=== PATIENT | female | born 1965 | race Two or more races ===

== ENCOUNTER → 2017-12-12 | Outpatient (CLI) | payer OTHER ==
[~2017-12-12] MED LIST: ACIDOPHILUS1 EAC1 PO; ALBUTEROL2.5 MG/3 M IH; AMOX1TAB12 PO; AZITHROMYCIN250 MG PO; FLONASE16 G1 NS; IPRAT-ALBUT 0.5-3 ML IH; LEXAPRO5 MG PO; LUNESTA1 MG PO; NASONEX17 GM TOP; PERCOCET 5/3251 TAB PO; PROTONIX40 M1; PULMICORT1 MG/2 ML IH; SYNTHROID100 MCG; SYNTHROID50 MCG PO; TUSSI PRES-B L120 M1 PO; TUSSIONEX PENN115 ML PO; XOPENEX HFA15 GM IH
== END | disposition home or self-care (01) ==
LOC: PPH VACUNA 12:34
DX: Z23 Encounter for immunization (principal)

== ENCOUNTER 2018-01-02 16:11 | Inpatient (IN) | payer OTHER ==
[~2018-01-02] VITALS: Ht 167.6 cm; Wt 79.8 kg
[2018-01-02] MEDS ORDERED: SINGULAIR10 MG (16:33)
[2018-01-02] MEDS ORDERED: TRINTELLIX10 MG (16:33)
[2018-01-02] MEDS ORDERED: BENADRYL25 MG (16:34)
== END 2018-01-06 17:35 | disposition home or self-care (01) | DRG 419 ==
LOC: ER 16:11 → SEC-K 21:14 → MEDJ 21:14
PROVIDERS: Surgery
PROC: BF37ZZZ Magnetic Resonance Imaging (MRI) of Pancreas (ICD-10-PCS; 2018-01-02)
PROC: 0FT44ZZ Resection of Gallbladder, Percutaneous Endoscopic Approach (ICD-10-PCS; principal; 2018-01-05 11:00)
DX: K80.00 Calculus of gallbladder with acute cholecystitis without obstruction (principal)

== ENCOUNTER 2018-07-20 11:32 | Outpatient (CLI) | payer OTHER ==
[~2018-07-20 11:32] MED LIST changes: +BENADRYL25 MG; +SINGULAIR10 MG; +TRINTELLIX10 MG
== END 2018-07-20 11:43 | disposition home or self-care (01) ==
LOC: TOM 11:32
DX: R51 Headache (principal); G50.1 Atypical facial pain

== ENCOUNTER 2019-06-14 14:42 | Outpatient (CLI) | payer OTHER | END 2019-06-14 14:57 | disposition home or self-care (01) | LOC: RAD 14:42 | DX: M54.5 Low back pain (principal); M54.16 Radiculopathy, lumbar region; M54.2 Cervicalgia ==

== ENCOUNTER → 2019-06-24 | Outpatient (CLI) | payer OTHER | END | disposition home or self-care (01) | LOC: NUCLEAR 11:30 | DX: M81.0 Age-related osteoporosis without current pathological fracture (principal); Z13.820 Encounter for screening for osteoporosis ==

== ENCOUNTER → 2019-06-24 | Outpatient (CLI) | payer OTHER | END | disposition home or self-care (01) | LOC: MAMO-SONO 09:21 | DX: Z12.31 Encounter for screening mammogram for malignant neoplasm of breast (principal); Z87.898 Personal history of other specified conditions ==

== ENCOUNTER 2019-07-02 15:06 | Outpatient (CLI) | payer OTHER | END 2019-07-02 15:08 | disposition home or self-care (01) | LOC: RAD 15:06 | DX: M48.061 Spinal stenosis, lumbar region without neurogenic claudication (principal) ==

== ENCOUNTER 2019-07-04 10:15 | Outpatient (CLI) | payer OTHER | END 2019-07-04 10:17 | disposition home or self-care (01) | LOC: NUCLEAR 10:15 | DX: K76.5 Hepatic veno-occlusive disease (principal); I87.2 Venous insufficiency (chronic) (peripheral); I73.9 Peripheral vascular disease, unspecified ==

== ENCOUNTER → 2019-07-05 | Outpatient (CLI) | payer OTHER | END | disposition home or self-care (01) | LOC: NUCLEAR 08:00 | DX: K76.5 Hepatic veno-occlusive disease (principal); I73.9 Peripheral vascular disease, unspecified ==

== ENCOUNTER → 2019-07-12 | Outpatient (CLI) | payer OTHER | END | disposition home or self-care (01) | LOC: RAD 11:10 | DX: M25.551 Pain in right hip (principal); M25.552 Pain in left hip ==

== ENCOUNTER 2020-01-02 14:53 | Outpatient (CLI) | payer OTHER | END 2020-01-02 15:04 | disposition home or self-care (01) | LOC: RAD 14:53 | DX: M16.0 Bilateral primary osteoarthritis of hip (principal); M54.6 Pain in thoracic spine ==

== ENCOUNTER 2020-07-03 12:27 | Emergency (ER) | payer OTHER ==
[~2020-07-03] VITALS: Ht 167.6 cm; Wt 82.6 kg
[2020-07-03] MEDS ORDERED: VITAMIN D31250 MCG PO (12:35)
[2020-07-03] MEDS ORDERED: SYNTHROID100 MCG PO (12:35)
[2020-07-03] MEDS ORDERED: TRINTELLIX20 MG PO (12:35)
[2020-07-03] MEDS ORDERED: MELATONIN10 MG PO (12:37)
== END 2020-07-03 17:04 | disposition home or self-care (01) ==
LOC: ER 12:27
DX: B34.9 Viral infection, unspecified (principal); Z20.828 Contact with and (suspected) exposure to other viral communicable diseases

== ENCOUNTER 2020-07-23 16:22 | Emergency (ER) | payer OTHER ==
[~2020-07-23] VITALS: Ht 167.6 cm; Wt 82.6 kg
[~2020-07-23 16:22] MED LIST changes: +MELATONIN10 MG PO; +SYNTHROID100 MCG PO; +TRINTELLIX20 MG PO; +VITAMIN D31250 MCG PO
== END 2020-07-23 22:33 | disposition home or self-care (01) ==
LOC: ER 16:22
DX: U07.1 COVID-19 (principal); J12.89 Other viral pneumonia

== ENCOUNTER 2020-08-06 13:18 | Emergency (ER) | payer OTHER ==
[~2020-08-06] VITALS: Ht 167.6 cm; Wt 80.7 kg
== END 2020-08-06 21:17 | disposition home or self-care (01) ==
LOC: ER 13:18
DX: U07.1 COVID-19 (principal)

== ENCOUNTER 2022-10-03 09:39 | Outpatient (CLI) | payer OTHER | END 2022-10-03 09:54 | disposition home or self-care (01) | LOC: MAMO-SONO 09:39 | DX: N64.4 Mastodynia (principal) ==

== ENCOUNTER → 2022-10-05 | Outpatient (CLI) | payer OTHER | END | disposition home or self-care (01) | LOC: RAD 14:53 | PROVIDERS: ATTEND Internal Medicine Pulmonary Disease | DX: R06.02 Shortness of breath (principal); Z86.16 Personal history of COVID-19 ==

== ENCOUNTER 2023-02-17 12:13 | Outpatient (CLI) | payer OTHER | END 2023-02-17 12:26 | disposition home or self-care (01) | LOC: SONOGRAMA 12:13 | PROVIDERS: ATTEND Obstetrics & Gynecology Gynecology | DX: R22.31 Localized swelling, mass and lump, right upper limb (principal) ==

== ENCOUNTER 2023-11-13 09:18 | Outpatient (CLI) | payer OTHER | END 2023-11-13 09:32 | disposition home or self-care (01) | LOC: MAMO-SONO 09:18 | PROVIDERS: ATTEND Obstetrics & Gynecology Gynecology | DX: N64.4 Mastodynia (principal); Z12.31 Encounter for screening mammogram for malignant neoplasm of breast ==

== ENCOUNTER 2023-12-20 09:08 | Outpatient (CLI) | payer OTHER | END 2023-12-20 09:19 | disposition home or self-care (01) | LOC: TOM 09:08 | PROVIDERS: ATTEND Internal Medicine Pulmonary Disease | DX: R00.2 Palpitations (principal); J45.30 Mild persistent asthma, uncomplicated; G47.33 Obstructive sleep apnea (adult) (pediatric); E66.01 Morbid (severe) obesity due to excess calories; U09.9 Post COVID-19 condition, unspecified ==

== ENCOUNTER → 2024-08-08 | Emergency (ER) | payer OTHER ==
[~2024-08-08] VITALS: Ht 167.6 cm; Wt 86.6 kg
[~2024-08-08] MED LIST changes: +ALLEGRA ALLERG180 MG
== END | disposition home or self-care (01) ==
LOC: ER 14:35
DX: I10 Essential (primary) hypertension (principal); Z88.8 Allergy status to other drugs, medicaments and biological substances; E03.9 Hypothyroidism, unspecified; G93.39 Other post infection and related fatigue syndromes; U09.9 Post COVID-19 condition, unspecified; Z91.013 Allergy to seafood

== ENCOUNTER 2024-11-21 13:17 | Outpatient (CLI) | payer OTHER | END 2024-11-21 13:28 | disposition home or self-care (01) | LOC: MAMO-SONO 13:17 | PROVIDERS: ATTEND Obstetrics & Gynecology Gynecology | DX: N64.4 Mastodynia (principal); Z12.31 Encounter for screening mammogram for malignant neoplasm of breast ==

== ENCOUNTER 2025-07-07 10:51 | Outpatient (CLI) | payer OTHER | END 2025-07-07 10:53 | disposition home or self-care (01) | LOC: NUCLEAR 10:51 | PROVIDERS: ATTEND Specialist | DX: M81.0 Age-related osteoporosis without current pathological fracture (principal) ==